=== PATIENT | female | born 1990 | race Caucasian/White ===

== ENCOUNTER 2016-08-17 00:05 | Outpatient (CLI) | payer MEDICAID ==
[2016-09-05] MEDS ORDERED: PRENATAL VIT1 TAB PO (10:16)
[2016-09-05] MEDS ORDERED: MOTRIN-DPS800 MG PO (10:17)
[2016-09-05] MEDS ORDERED: COLACE-DPS100 MG PO (10:17)
[2016-09-05] MEDS ORDERED: NORCO 5-325 TA1 EACH PO (10:17)
[2016-09-05] MEDS ORDERED: MYLICON DPS80 MG PO (10:17)
[2016-09-05] MEDS ORDERED: VALTREX DPS1 GM PO (10:17)
[2016-09-05] MEDS ORDERED: NIPPLECREAM TP (10:18)
== END 2016-08-17 02:10 | disposition home or self-care (01) ==
LOC: 2LDRP 00:05 → WOR 00:05 → BC 00:05 → 2LDRP 02:10 → BC 02:10
DX: O99.89 Other specified diseases and conditions complicating pregnancy, childbirth and the puerperium (principal); R10.9 Unspecified abdominal pain; Z3A.36 36 weeks gestation of pregnancy

== ENCOUNTER 2016-08-17 04:55 | Outpatient (CLI) | payer MEDICAID ==
[2016-09-05] MEDS ORDERED: PRENATAL VIT1 TAB PO (10:16)
[2016-09-05] MEDS ORDERED: MOTRIN-DPS800 MG PO (10:17)
[2016-09-05] MEDS ORDERED: NORCO 5-325 TA1 EACH PO (10:17)
[2016-09-05] MEDS ORDERED: VALTREX DPS1 GM PO (10:17)
[2016-09-05] MEDS ORDERED: COLACE-DPS100 MG PO (10:17)
[2016-09-05] MEDS ORDERED: MYLICON DPS80 MG PO (10:17)
[2016-09-05] MEDS ORDERED: NIPPLECREAM TP (10:18)
== END 2016-08-17 06:46 | disposition home or self-care (01) ==
LOC: 2LDRP 04:55 → BC 04:55
DX: O47.03 False labor before 37 completed weeks of gestation, third trimester (principal); Z3A.36 36 weeks gestation of pregnancy

== ENCOUNTER 2016-09-02 05:29 | Inpatient (IN) | payer MEDICAID ==
[~2016-09-02] VITALS: Ht 160 cm; Wt 68.0 kg
--- NOTE | ~2016-09-02 | HP ---
ADMIT: 09/02/2016 RM/LOC: 223 [facility] MR#: [id number] [address] [address] [place] [address] [facility] [address] [place] [address] Pre-OP History and Physical SEX: F AGE: 26 : 1990 DATE OF SERVICE: HISTORY OF PRESENT ILLNESS: The patient is a 26-year-old 3, para 1-1- 0-2, who presented to Labor and Delivery at 39 and 0/7th weeks' gestation by last menstrual period. Estimated date of confinement is 09/09/2016. The patient's has been complicated by a history of previous section x1 and therefore been scheduled for repeat section. The patient's has otherwise been complicated by a history of previous delivery and history of herpes simplex infection as well as late entry of care. LABORATORY DATA: Blood type O positive, antibody screen negative, RPR nonreactive, rubella immune. Normal 1 hour glucose tolerance test and group B Strep negative. PAST MEDICAL HISTORY: History of herpes simplex. PAST SURGICAL HISTORY: section x1. ALLERGIES: NO KNOWN MEDICAL ALLERGIES. CURRENT MEDICATIONS: Valtrex 1 g daily and vitamins daily. FAMILY HISTORY: Mother with diabetes mellitus. SOCIAL HISTORY: The patient is single. She denies any alcohol, tobacco, or drug use. PHYSICAL EXAMINATION: VITAL SIGNS: On admission, vital signs are stable. The patient is afebrile. GENERAL: The patient is alert and oriented, no acute distress. HEART: Regular rate and rhythm without murmurs, gallops, or rubs. LUNGS: Clear to auscultation bilaterally. ABDOMEN: Soft, nontender, and gravid. EXTREMITIES: No edema. No calf tenderness. ADMIT: 09/02/2016 RM/LOC: 223 [facility] MR#: [id number] [address] RICH MORENO [facility] [address] [facility] [address] [place] [address] Pre-OP History and Physical SEX: F AGE: 26 : 1990 ASSESSMENT AND PLAN: 1. A 26-year-old 3, para 1-1-0-2 at 39 and 0/7th weeks' gestation. 2. History of previous section. Plan to proceed with repeat low transverse section. The risks, benefits, and alternatives of surgery including, but not limited to risk of bleeding, possibly requiring blood transfusion, risk of infection, risk of injury to bowel or bladder have been discussed with the patient and she wished to proceed. 3. History of delivery. The patient presented to weighed care to have benefited progesterone. 4. History of herpes simplex. The patient has been on Valtrex suppression. Has not had any new lesions in the last trimester of . Hailey Charles MD/ mulugeta JOB #: [id number] CC: Hailey Charles, Attending Physician Hailey Charles, Family Physician
[2016-09-05] MEDS ORDERED: PRENATAL VIT1 TAB PO (10:16)
[2016-09-05] MEDS ORDERED: MYLICON DPS80 MG PO (10:17)
[2016-09-05] MEDS ORDERED: COLACE-DPS100 MG PO (10:17)
[2016-09-05] MEDS ORDERED: NORCO 5-325 TA1 EACH PO (10:17)
[2016-09-05] MEDS ORDERED: MOTRIN-DPS800 MG PO (10:17)
[2016-09-05] MEDS ORDERED: VALTREX DPS1 GM PO (10:17)
[2016-09-05] MEDS ORDERED: NIPPLECREAM TP (10:18)
--- NOTE | 2016-09-30 09:00 | OR ---
ADMIT: 09/02/2016 RM/LOC: 223 [facility] MR#: [id number] [address] [address] RICH MORENO [address] [place] [id number] Operative/Delivery Room Report SEX: F AGE: 26 : 1990 Corrected: 09/02/2016 0641 njv SURGERY DATE: 09/02/2016 SURGEON: Hailey Charles MD PROCEDURE: Repeat low-transverse section. BOTTLE DEALER: Dannielle Shepherd MD Resident. PREOPERATIVE DIAGNOSES: 1. Intrauterine at 39 and 0/7th weeks' gestation. 2. Previous section x1. 3. History of herpes simplex virus. 4. Late entry to care. POSTOPERATIVE DIAGNOSES: 1. Intrauterine at 39 and 0/7th weeks' gestation. 2. Previous section x1. 3. History of herpes simplex virus. 4. Late entry to care. FINDINGS: 1. Liveborn male infant, scores 8 at 1 minute, 9 at 5 minutes. Weight 7 pounds 15 ounces. 2. Normal-appearing uterus, tubes, and ovaries bilaterally. ESTIMATED BLOOD LOSS: 600 mL. ANESTHESIA: Spinal. COMPLICATIONS: None. INDICATIONS FOR PROCEDURE: The patient is a 26-year-old, 3 para 1-1-0- 1 who presented to Labor and Delivery at 39 and 0/7th weeks' gestation for scheduled repeat section. The patient's had been complicated by late entry to care, history of previous section x1, and history of herpes simplex virus. The patient also had a history of previous delivery in [facility]. Risks, benefits, alternatives of repeat section discussed with the patient, and she wished to proceed. DESCRIPTION OF PROCEDURE: The patient was taken to the operating room where spinal anesthesia was obtained without difficulty. The patient was placed in the dorsal supine position in leftward tilt, and prepped and draped in the usual sterile fashion. A Pfannenstiel skin incision was made with scalpel and was carried through to the underlying layer of fascia. The fascia was nicked in midline and this incision was extended bilaterally using Wilson scissors. The superior aspect of the fascial incision was grasped with Ellen clamps, ADMIT: 09/02/2016 RM/LOC: 223 [facility] MR#: [id number] [address] RICH MORENO [address] [place] [address] Operative/Delivery Room Report SEX: F AGE: 26 : 1990 elevated, and the underlying rectus muscles were dissected off bluntly. In a similar fashion, the inferior aspect of the fascial incision was grasped with Ellen clamps, elevated, and the underlying rectus muscles were dissected off bluntly with Wilson scissors. The peritoneum was entered bluntly and this incision was extended bluntly as well. The bladder blade was then placed. The vesicouterine peritoneum was identified and entered sharply with Metzenbaum scissors. This incision was extended bilaterally and a bladder flap was created digitally. Bladder blade was then replaced. The lower uterine segment was incised with a scalpel. This incision was extended bluntly. Amniotomy was performed and clear fluid was noted. The infant's vertex was grasped and delivered through the uterine incision. The remainder of the was delivered without difficulty as well. The infant was dried. The cord was clamped and cut, and the was handed off to the warmer where nursing personnel were in attendance. The placenta then delivered intact. Twenty units of Pitocin had been placed in IV bag to firm the uterus. Uterus was exteriorized and cleared of all clots and debris. The uterine incision was closed in a running fashion using 0 Vicryl. Several [id number] stitches were used for hemostasis of the uterine incision. When the uterus appeared hemostatic, the uterus was replaced into the abdominal cavity. The gutters were checked and cleared of all clots and debris. The uterine incision was again examined and was noted to be hemostatic. The muscles and fascia were then made hemostatic with electrocautery. The fascial incision was closed in a running fashion using 0 Vicryl. The subcutaneous layer was made hemostatic with electrocautery. This layer was brought together using interrupted 2-0 plain gut, and the skin incision was closed with subcuticular stapler. The patient tolerated the procedure well. All sponge and needle counts were correct. The patient and recovered in the room in stable condition. Hailey Charles MD/ mulugeta JOB #: [id number] CC: Hailey Charles, Attending Physician Hailey Charles, Family Physician Corrected: 09/02/2016 0641 njv
--- NOTE | 2016-11-18 08:40 | DS ---
ADMIT: 09/02/2016 RM/LOC: 223 [facility] MR#: [id number] [address] RICH MORENO [address] [place] [address] General Discharge Summary SEX: F AGE: 26 : 1990 ADMISSION DATE: 09/02/2016 DISCHARGE DATE: 09/04/2016 ADMISSION DIAGNOSES: 1. Intrauterine at 39 and 0/7th weeks' gestation. 2. Previous section x1. 3. History of previous delivery. 4. History of herpes simplex infection. 5. Late entry to care. DISCHARGE DIAGNOSES: 1. Intrauterine at 39 and 0/7th weeks' gestation. 2. Previous section x1. 3. History of previous delivery. 4. History of herpes simplex infection. 5. Late entry to care. PROCEDURES PERFORMED: Repeat low-transverse section performed on 09/02/2016, with delivery of liveborn male , scores 8 at 1 minute, 9 at 5 minutes. Weight 7 pounds 15 ounces. INDICATIONS FOR HOSPITALIZATION: The patient is a 26-year-old, 3, para 1-1-0-2, presented to Labor and Delivery at 39 and 0/7th weeks' gestation. The patient had a history of previous section and desired repeat . HOSPITAL COURSE: The patient underwent the above-named procedure on 09/02/2016. Postoperatively, the patient did well. On postoperative day 1, the patient's pain was controlled. The patient did have some urinary retention and so her Mcclendon catheter was left in place on postoperative day #1. By postoperative day #2, the patient was ambulating voiding without ADMIT: 09/02/2016 RM/LOC: 223 [facility] MR#: [id number] [place] [address] [place] [id number] RICH MORENO [address] [place] [address] General Discharge Summary SEX: F AGE: 26 : 1990 difficulty. Postoperative hemoglobin was noted to be 12.0. The patient was deemed stable for discharge on postoperative day #2. DISCHARGE INSTRUCTIONS: The patient to be discharged to home. She is to continue Motrin 800 mg q.8 hours p.r.n. pain. She is to continue Valtrex 1 tablet daily and Lortab 5/325 one to two p.o. q.4-6 hours, #30. She is to follow up in the clinic in 2 weeks for incision check and in 6 weeks for a check. FINAL DISPOSITION: The patient is to home. CONDITION ON DISCHARGE: Stable. Hailey Charles MD/ mulugeta JOB #: [id number] CC: Hailey Charles MD, Attending Physician Hailey Charles MD, Family Physician
== END 2016-09-04 12:07 | disposition home or self-care (01) | DRG 765 ==
LOC: 2LDRP 05:29 → BC 05:29 → 2LDRP 05:38
PROVIDERS: ADMIT Obstetrics & Gynecology
PROC: 10D00Z1 Extraction of Products of Conception, Low, Open Approach (ICD-10-PCS; principal; 2016-09-02)
DX: O34.211 Maternal care for low transverse scar from previous cesarean delivery (principal); O98.32 Other infections with a predominantly sexual mode of transmission complicating childbirth; A60.00 Herpesviral infection of urogenital system, unspecified; O90.89 Other complications of the puerperium, not elsewhere classified; R33.9 Retention of urine, unspecified; R42 Dizziness and giddiness; O9A.23 Injury, poisoning and certain other consequences of external causes complicating the puerperium; T39.1X5A Adverse effect of 4-Aminophenol derivatives, initial encounter; Y92.230 Patient room in hospital as the place of occurrence of the external cause; Z3A.39 39 weeks gestation of pregnancy; Z37.0 Single live birth